=== PATIENT | male | born 1980 | race Two or more races ===

== ENCOUNTER 2023-02-13 20:48 | Emergency (ER) | payer MEDICAID ==
[~2023-02-13] VITALS: Ht 185.4 cm; Wt 104.3 kg
[2023-02-13 21:03] VITALS: BP 140/77; TEMP 98.5
--- NOTE | 2023-02-13 21:18 | NUR ---
REDNESS ON TIP OF NOSE, DENIES PAIN JUST DISCOMFORT
[2023-02-13] MEDS ORDERED: DOXY100C2 PO (21:26)
--- NOTE | 2023-02-13 21:39 | NUR ---
Patient discharged to home in stable condition. Written and verbal after care instructions given. Patient verbalizes understanding of instruction.
== END 2023-02-13 21:39 | disposition home or self-care (01) ==
LOC: ER 20:52
DX: J34.0 Abscess, furuncle and carbuncle of nose (principal)